=== PATIENT | male | born 1960 | race Caucasian/White ===

== ENCOUNTER 2024-10-29 10:05 | Day surgery (SDC) | payer MEDICARE ==
[~2024-10-29 10:05] MED LIST: LIDOCAINE 1% (10MG/ML) FOR IV START INTRADERMA PRN; fentaNYL (PF) 50 MCG/ML 2 ML AMP IVP PRN
[2024-10-29 10:31] VITALS: TEMP 97.3
[2024-10-29 11:08] LABS: Glucose,Whole Blood 190 mg/dL (70-110)
[2024-10-29] MEDS: IV FLUID CONTINUATION 1,000 ML IV ONE (11:18)
[2024-10-29] MEDS: DEXAMETHASONE SOD PHOSPHATE 4 MG/ML 1 ML VIAL IV ONE (11:20)
[2024-10-29] MEDS: ONDANSETRON 4 MG/2 ML VIAL IVP ONE (11:20)
[2024-10-29] MEDS: LACTATED RINGERS 1,000 ML IV SCH (11:20)
[2024-10-29] MEDS: MIDAZOLAM 2 MG/2 ML VIAL IV PRN (11:30)
[2024-10-29] MEDS ORDERED: DEXAMETHASONE SOD PHOSPHATE 4 MG/ML 1 ML VIAL ONE (11:41)
[2024-10-29] MEDS ORDERED: PROPOFOL 10 MG/ML 20 ML VIAL IV ONE (11:41)
[2024-10-29] MEDS ORDERED: PHENYLEPHRINE 10 MG/ML VIAL ONE (11:41)
[2024-10-29] MEDS ORDERED: SUCCINYLCHOLINE CHLORIDE 200 MG/10 ML VIAL IV ONE (11:41)
[2024-10-29] MEDS ORDERED: LIDOCAINE 1% INJ 10MG/ML (20 ML MDV) ONE (11:41)
[2024-10-29] MEDS ORDERED: ePHEDrine 50 MG/ML 1 ML VIAL ONE (11:41)
[2024-10-29] MEDS ORDERED: ROPIVACAINE 5 MG/ML 30 ML VIAL ONE (11:41)
--- NOTE | 2024-10-29 11:49 | P.ANPRN ---
Procedure Note - Anesthesia - Nerve Block Performed Right Interscalene Single Time Out Performed: Yes Date of Procedure: 10/29/24 Procedure Start Time: 11:36 Procedure Stop Time: 11:41 Location of Patient: PreOp Indication: Acute Post-Operative Pain, Analgesia, Requested by Surgeon Sedation Type: Sedate with meaningful contact maintained Preparation: Sterile Prep Position: Sitting Catheter: None Needle Types: Pajunk Needle Gauge: 21 Ultrasound used to visualize needle placement: Yes Ultrasound used to observe medication spread: Yes Injectate: 0.5% Ropivacaine (see comment for volume) ([id number], Negative stimulation @0.5MA) Blood Aspirated: No Pain Paresthesia on Injection Noted: No Resistance on Injection: Normal Image Stored and Saved: Yes Events: Uneventful and Well Tolerated
[2024-10-29] MEDS: LACTATED RINGERS 1,000 ML IV ONE (13:04)
--- NOTE | 2024-10-29 13:48 | P.OP ---
Date of Procedure: 10/29/24 Preoperative Diagnosis: Right shoulder impingement Postoperative Diagnosis: 1. Right shoulder massive retracted rotator cuff tendon tear 2. Right shoulder impingement 3. Right shoulder partial long head biceps tendon tear/bicipital tendinitis Procedure(s) Performed: 1. Right shoulder arthroscopic rotator cuff repair 2. Right shoulder arthroscopic subacromial decompression 3. Right shoulder arthroscopic biceps tenotomy Implants: 1Arthrex 4.75 swivel lock anchor Anesthesia: GETA, regional (Interscalene block) Surgeon: Junior Gordon Catheter Builder #1: Destin Reyes Estimated Blood Loss (ml): 8 Pathology: none sent Condition: stable Disposition: PACU Indications for Procedure: 64-year-old gentleman seen with progressive right shoulder pain. After having treatment options discussed, he elected to proceed with right shoulder arthroscopy. Operative Findings: See description of procedure Description of Procedure: Patient underwent an interscalene block by department of anesthesia. The patient was then taken to the operative suite. The patient underwent a general anesthetic by the department of anesthesia. The patient was placed into a lateral position and secured. There was appropriate padding of the bony prominence. Right shoulder was then prepped and draped in normal sterile orthopedic fashion. We placed the extremity in 10 pounds of longitudinal traction. A posterior incision was now made for a posterior working portal site. The trocar and cannula were inserted into the glenohumeral joint. Arthroscopy was initiated. Spinal needle was now inserted anteriorly, to ascertain the anterior working portal site. An incision was now made in that area, a trocar was inserted followed by a probe. 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 There was significant hyperemia and partial tearing of the long head biceps tendon. The labrum was diminutive but appeared to be stable with no tears. I did note what appeared to be a massive rotator cuff tendon tear. At this point I performed a biceps tenotomy. The residual labrum report appeared stable. Instruments were now removed from the glenohumeral joint. Utilizing the posterior working portal site, the trocar and cannula were inserted into the subacromial space. Arthroscopy initiated. I made an incision 2 fingerbreadths lateral to the acromion. I introduced my trocar followed by my ArthroCare ablator. I now began ablating thick subacromial bursal tissue, which exposed the undersurface of the anterior acromion. There was diminished subacromial space. There was a very prominent anterior acromion. A motorized bur was introduced and a subacromial decompression was performed. I also excised some osteophytes off the inferior aspect of the distal clavicle. The AC joint was visualized and noted to be moderately arthritic, I did not think enough to warrant a Domenic procedure. I turned my attention to the rotator cuff tendon. There was a massive retracted tear involving the entire supraspinatus tendon. I now began to carefully mobilize the tendon all the way from the anterior aspect of the posterior aspect fraying of the muscle I could. I was able to free it up quite a bit and bring the margins closer together. I decided to go ahead and attempt a repair. I abraded the footprint with a motorized bur. With the assistance of Ramone DOUGLAS I passed 4 converging sutures sewing the middle portion of the tendon [id number]. I now decided to throw 1 more converging suture for a total of 5. I had at this point about 7080% coverage of the humeral head with still defect more anteriorly. I was able to mobilize the tendon any further than this. I threw additional 2 Ubretid mattress sutures through the posterior aspect of the supraspinatus tendon and punched a hole more anteriorly over the footprint area that I abraded for insertion of an anchor. All 4 limbs of suture were passed through the eyelet of an Arthrex 4.75 swivel lock anchor. I held the eyelet in position while Ramone DOUGLAS tensioned the sutures and deployed the anchor with good fixation noted. The residual suture limbs were clipped. We had a stable repair again covering about 80% of the humeral head but still noting that defect anteriorly. I again placed a soft tissue grasper and noted that I could not mobilize the rotator cuff tendon tissue anymore. Instruments now removed from the portal sites. All portal sites were approximated with nylon suture. Sterile dressings were applied followed by a shoulder immobilizer. Destin DOUGLAS assisted in this complex case. The patient was awakened, transferred to a bed, and taken to recovery in stable condition.
[2024-10-29 14:11] LABS: Glucose,Whole Blood 220 mg/dL (70-110)
[2024-10-29 15:14] VITALS: RESP 16
[2024-10-29 15:19] VITALS: BP 116/84; PULSE 72
== END 2024-10-29 16:07 | disposition home or self-care (01) ==
LOC: OR 10:05
PROVIDERS: ATTEND Orthopaedic Surgery
DX: M75.41 Impingement syndrome of right shoulder (principal); M25.811 Other specified joint disorders, right shoulder; M75.121 Complete rotator cuff tear or rupture of right shoulder, not specified as traumatic; M75.21 Bicipital tendinitis, right shoulder; G89.18 Other acute postprocedural pain
CPT/HCPCS: 29827; 29826; 29828; 64415; J2250; J1100; J0690; J2405